=== PATIENT | female | born 1950 | race Caucasian/White ===

== ENCOUNTER 2016-06-27 11:45 | Emergency (ER) | payer MEDICARE, OTHER ==
[~2016-06-27] VITALS: Ht 165.1 cm; Wt 81.6 kg
[2016-06-27 12:27] VITALS: BP 130/90
== END 2016-06-27 12:33 | disposition home or self-care (01) ==
LOC: ER 11:48
DX: H66.91 Otitis media, unspecified, right ear (principal); E03.9 Hypothyroidism, unspecified; I10 Essential (primary) hypertension
CPT/HCPCS: 99285; A4606; Z7610

== ENCOUNTER 2018-06-29 09:41 | Emergency (ER) | payer MEDICARE, OTHER ==
[~2018-06-29] VITALS: Ht 167.6 cm; Wt 81.6 kg
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
--- NOTE | 2018-06-29 09:50 | NUR ---
DR. SINGLETON AT BEDSIDE FOR EVAL.
--- NOTE | 2018-06-29 10:00 | NUR ---
IV LINE ESTABLISHED, LABS DRAWNED AND SENT TO LAB. AWAITING RESULTS.
--- NOTE | 2018-06-29 10:04 | NUR ---
ARTERIAL EMBALMER AT BEDSIDE FOR XRAY.
[2018-06-29 10:07] LABS: BASOPHILS # (AUTO) 0.1 /CMM (0.0-0.2); EOSINOPHILS % (AUTO) 1.8 % (0.0-6.0); HEMATOCRIT 43 % (33-45); HEMOGLOBIN 14.3 g/dL (11.5-14.8); LYMPHOCYTES # (AUTO) 1.4 /CMM (0.8-4.8); LYMPHOCYTES % (AUTO) 31.6 % (20.0-44.0); MEAN CORPUSCULAR HGB CONC 33 g/dl (31.0-36.0); MEAN CORPUSCULAR VOLUME 90 fL (82-100); MONOCYTES # (AUTO) 0.4 /CMM (0.1-1.30); MONOCYTES % (AUTO) 8.1 % (2.0-12.0); NEUTROPHILS # (AUTO) 2.5 /CMM (1.8-8.9); NEUTROPHILS % (AUTO) 56.5 % (43.0-81.0); PLATELET COUNT (AUTO) 213 /CMM (150-450); RED BLOOD CELL COUNT(AUTO) 4.78 MIL/uL (4.0-5.2); WHITE BLOOD COUNT (AUTO) 4.4 K/uL (4.3-11.0)
[2018-06-29 10:24] LABS: CALCIUM, SERUM 9.1 mg/dL (8.5-10.1); CARBON DIOXIDE 26 mmol/L (21-32); CHLORIDE 106 mmol/L (98-107); GLUCOSE 132 mg/dL (74-106); POTASSIUM 3.5 mmol/L (3.5-5.1); SODIUM SERUM 142 mmol/L (136-145); UREA NITROGEN, BLOOD 15 mg/dL (7-18)
[2018-06-29 10:27] LABS: ALANINE AMINOTRANSFERASE 73 U/L (12-78); ALBUMIN 3.8 g/dL (3.4-5.0); ALKALINE PHOSPHATASE 82 U/L (46-116); ASPARTATE AMINOTRANSFERASE 39 U/L (15-37); BILIRUBIN,DIRECT 0.1 mg/dL (0.0-0.2); BILIRUBIN,TOTAL 0.5 mg/dL (0.2-1.0); TOTAL PROTEIN, SERUM 7.7 g/dL (6.4-8.2)
--- NOTE | 2018-06-29 11:24 | NUR ---
IV removed. Catheter intact and site benign. Pressure and 4x4 applied to site. No bleeding noted. Patient discharged to home in stable condition. Written and verbal after care instructions given. Patient verbalizes understanding of instruction.
[2018-06-29 11:31] VITALS: BP 122/78
== END 2018-06-29 11:34 | disposition home or self-care (01) ==
LOC: ER 09:42
DX: R07.89 Other chest pain (principal); I10 Essential (primary) hypertension; E03.9 Hypothyroidism, unspecified; Z90.89 Acquired absence of other organs
CPT/HCPCS: 36415; 71045-TC; 80048-TC; 80076-TC; 84484-TC; 85025-TC

== ENCOUNTER 2023-10-15 07:59 | Emergency (ER) | payer MEDICARE, OTHER ==
[~2023-10-15] VITALS: Ht 167.6 cm; Wt 79.4 kg
[2023-10-15] MEDS ORDERED: POLY10DR OP (08:47)
[2023-10-15 08:56] VITALS: BP 122/78; TEMP 98.4; O2SAT 96
== END 2023-10-15 08:57 | disposition home or self-care (01) ==
LOC: ER 08:04
DX: R07.89 Other chest pain (principal); H10.9 Unspecified conjunctivitis; E11.9 Type 2 diabetes mellitus without complications; E03.9 Hypothyroidism, unspecified; Z90.49 Acquired absence of other specified parts of digestive tract